=== PATIENT | female | born 1940 | race Caucasian/White ===

== ENCOUNTER 2018-10-21 20:46 | Inpatient (IN) | payer MEDICARE, OTHER ==
[~2018-10-21] VITALS: Ht 154.9 cm; Wt 73.0 kg
[2018-10-21 20:00] VITALS: BP 150/77
--- NOTE | 2018-10-21 21:10 | NUR ---
PT BIB [facility] WITH A C/O ABD PAIN SINCE 3PM TODAY. PT IS C/O BLOATING AND BURNING PAIN. PT IS ON THE MONITOR AND CONTINUOUS PULSE OX. PT'S BP IS ELEVATED.
[2018-10-21] MEDS ORDERED: ONDANSETRON HCL/PF 4 MG/2 ML VIAL ONE ×2 (21:54→23:59)
[2018-10-21] MEDS ORDERED: MORPHINE SULFATE INJ 4 MG/ML DISP.SYRIN ONE (21:54)
[2018-10-21] MEDS ORDERED: MORPHINE SULFATE INJ 2 MG/ML DISP.SYRIN IV ONE (22:00)
[2018-10-21] MEDS ORDERED: ONDANSETRON HCL/PF - ER 4 MG/2 ML VIAL IV ONE (22:00)
[2018-10-21] MEDS ORDERED: IV NS 0.9% 1,000 ML BAG IV ONE (22:30)
[2018-10-21 22:51] LABS: BASOPHILS % (AUTO) 0.3 % (0.0-2.0); EOSINOPHILS % (AUTO) 0.1 % (0.0-6.0); HEMATOCRIT 42 % (33-45); HEMOGLOBIN 14.2 g/dL (11.5-14.8); LYMPHOCYTES # (AUTO) 1.1 /CMM (0.8-4.8); LYMPHOCYTES % (AUTO) 9.6 % (20.0-44.0); MEAN CORPUSCULAR HGB CONC 33 g/dl (31.0-36.0); MEAN CORPUSCULAR VOLUME 92 fL (82-100); MONOCYTES # (AUTO) 0.5 /CMM (0.1-1.30); MONOCYTES % (AUTO) 4.4 % (2.0-12.0); NEUTROPHILS # (AUTO) 9.4 /CMM (1.8-8.9); NEUTROPHILS % (AUTO) 85.6 % (43.0-81.0); PLATELET COUNT (AUTO) 288 /CMM (150-450); RED BLOOD CELL COUNT(AUTO) 4.63 MIL/uL (4.0-5.2)
[2018-10-21] MEDS ORDERED: PANTOPRAZOLE 40 MG VIAL ONE (22:54)
[2018-10-21 22:58] LABS: CALCIUM, SERUM 9.4 mg/dL (8.5-10.1); CARBON DIOXIDE 26 mmol/L (21-32); CHLORIDE 99 mmol/L (98-107); CREATININE 1.1 mg/dL (0.6-1.3); GLUCOSE 133 mg/dL (74-106); POTASSIUM 4.4 mmol/L (3.5-5.1); SODIUM SERUM 135 mmol/L (136-145); UREA NITROGEN, BLOOD 16 mg/dL (7-18)
[2018-10-21] MEDS ORDERED: PANTOPRAZOLE 40 MG VIAL IV ONE (23:00)
--- NOTE | 2018-10-21 23:02 | NUR ---
PT LEFT FOR CT VIA GURNEY.
[2018-10-21 23:04] LABS: ALANINE AMINOTRANSFERASE 20 U/L (12-78); ALBUMIN 3.7 g/dL (3.4-5.0); ALKALINE PHOSPHATASE 54 U/L (46-116); ASPARTATE AMINOTRANSFERASE 20 U/L (15-37); BILIRUBIN,DIRECT 0.1 mg/dL (0.0-0.2); BILIRUBIN,TOTAL 0.9 mg/dL (0.2-1.0); LIPASE 84 U/L (73-393); TOTAL PROTEIN, SERUM 8.1 g/dL (6.4-8.2)
--- NOTE | 2018-10-21 23:13 | NUR ---
pt returned from CT
--- NOTE | 2018-10-21 23:16 | NUR ---
US TECH AT THE BEDSIDE.
[2018-10-22] MEDS ORDERED: ONDANSETRON HCL/PF - ER 4 MG/2 ML VIAL IV ONE
[2018-10-22] MEDS ORDERED: ONDANSETRON HCL/PF 4 MG/2 ML VIAL ONE (00:04)
[2018-10-22] MEDS ORDERED: PIPERACILLIN /TAZOBACTAM 3.375 G in IV D5W 50 ML IV ONE (00:30)
[2018-10-22] MEDS ORDERED: PIPERACILLIN /TAZOBACTAM 3.375 G VIAL IV ONE (00:36)
[2018-10-22] MEDS ORDERED: GUAI120013 PO (00:43)
[2018-10-22] MEDS ORDERED: APIX5TAB4 PO (00:43)
[2018-10-22] MEDS ORDERED: HYDR-4075 PO (00:43)
[2018-10-22] MEDS ORDERED: LACT1CAP97 PO (00:43)
[2018-10-22] MEDS ORDERED: GABA300C PO (00:43)
[2018-10-22] MEDS ORDERED: OMEP20TA20 PO (00:43)
[2018-10-22] MEDS ORDERED: LOSA1TAB3 PO (00:43)
[2018-10-22] MEDS ORDERED: PITA4TAB PO (00:43)
[2018-10-22] MEDS ORDERED: ACETAMINOPHEN 325 MG TABLET PO PRN (01:30)
[2018-10-22] MEDS ORDERED: Z GUARD REMEDY 2 OZ OINT TP PRN (01:30)
[2018-10-22] MEDS ORDERED: MAGNESIUM HYDROXIDE 30 ML UDC PO PRN (01:30)
[2018-10-22] MEDS ORDERED: MAG HYDROX/AL HYDROX/SIMETH 30 ML UDC PO PRN (01:30)
[2018-10-22] MEDS ORDERED: ONDANSETRON HCL/PF 4 MG/2 ML VIAL IVP PRN (01:30)
[2018-10-22] MEDS ORDERED: MORPHINE SULFATE INJ 2 MG/ML DISP.SYRIN IV PRN (01:30)
[2018-10-22] MEDS ORDERED: MORPHINE SULFATE INJ 2 MG/ML DISP.SYRIN IV ONE (01:30)
[2018-10-22] MEDS ORDERED: ZOLPIDEM TARTRATE 5 MG TABLET PO PRN (01:30)
[2018-10-22 02:00] VITALS: BP 152/77
[2018-10-22 02:00] LABS: APPEARANCE,URINE CLOUDY (CLEAR); BILIRUBIN,URINE NEGATIVE (NEGATIVE); BLOOD, URINE NEGATIVE Ery/uL (NEGATIVE); COLOR,URINE YELLOW (YELLOW); KETONES,URINE TRACE (NEGATIVE); LEUKOCYTE ESTERASE ,URINE SMALL (NEGATIVE); NITRITE, URINE POSITIVE (NEGATIVE); PROTEIN,URINE NEGATIVE (NEGATIVE); UGLUCOSE NEGATIVE (NEGATIVE); UROBILINOGEN,URINE 0.2 EU/dL (0.2)
--- NOTE | 2018-10-22 02:00 | NUR ---
MS RN NOTE: RECEIVED PATIENT FROM ER, NO ACUTE DISTRESS NOTED. BREATHING EVEN AND UNLABORED, NO SOB NOTED. IV TO LEFT WRIST IN PLACE. PATIENT CONTINUES TO HAVE ABDOMINAL PAIN. ORIENTED TO ROOM AND USE OF CALL LIGHT. BED LOCKED AND IN LOWEST POSITION, CALL LIGHT IN REACH, WILL CONTINUE TO MONITOR.
[2018-10-22 02:11] LABS: BACTERIA,URINE Many /HPF (None Seen); SQUAMOUS EPITHELIAL CELL,UR Few /HPF (None Seen); WBC,URINE TOO NUMEROUS TO COUN /HPF (0-3)
[2018-10-22] MEDS: MORPHINE SULFATE INJ 4 MG/ML DISP.SYRIN IV PRN ×3 (02:42→17:31)
--- NOTE | 2018-10-22 02:45 | NUR ---
MS RN NOTE: PATIENT COMPLAINS OF ABDOMINAL PAIN 08/06, MORPHINE 2MG IV GIVEN PER MD ORDER. WILL CONTINUE TO MONITOR.
--- NOTE | 2018-10-22 06:05 | NUR ---
MS RN NOTE: PATIENT RESTING IN BED, NO ACUTE DISTRESS NOTED. BREATHING EVEN AND UNLABORED, NO SOB NOTED. IV TO LEFT WRIST IN PLACE. BED LOCKED AND IN LOWEST POSITION, CALL LIGHT IN REACH, WILL ENDORSE TO DAY NURSE TO CONTINUE WITH PLAN OF CARE.
[2018-10-22] MEDS: PANTOPRAZOLE 40 MG TABLET.DR PO SCH (07:23)
[2018-10-22] MEDS: HYDROCODONE/APAP 5/325MG 1 EACH TABLET PO PRN ×3 (07:25→15:03)
--- NOTE | 2018-10-22 07:30 | NUR ---
MSRN. PT RECEIVED AWAKE AND RESTING IN BED, A&0X3, TOLERATING ROOM AIR AND REPORTING 6/10 PAIN. PT PROVIDED PRN AND PAIN MANAGEMENT DISCUSSED AT LENGTH. PT REPORTING MINOR DISCOMFORT AT L WRIST IVC, IVC SALINE FLUSH PATENT AND NAD. PT AMB STEADY TO BATHROOM. PT BED IN LOWEST LOCKED POSITION WITH HANDRIALX2 AND CALL PENA WITHIN REACH. PT PROVIDED SOCKS FOR COMFORT AND SAFETY. PT BRIEFED ON POC AND IS WITHOUT CONCERN OR COMPLAINT AT THIS TIME. WILL CONTINUE POC.
[2018-10-22 08:00] VITALS: BP 159/74
[2018-10-22] MEDS: LACTOBACILLUS RHAMNOSUS GG 1 EACH CAP.SPRINK PO SCH (08:56)
[2018-10-22] MEDS: ATORVASTATIN 10 MG TABLET PO SCH (08:56)
[2018-10-22] MEDS: LOSARTAN/HCTZ 50-12.5MG/ 1 EA TABLET PO SCH (08:57)
[2018-10-22] MEDS: GUAIFENESIN LA 600 MG TABLET.SA PO SCH (08:57)
[2018-10-22] MEDS: hydrALAZINE HCL 10 MG TABLET PO SCH ×3 (08:57→17:31)
[2018-10-22] MEDS ORDERED: GABAPENTIN 300 MG CAPSULE PO SCH (09:00)
[2018-10-22] MEDS: IV D5/ 0.9% NACL 1,000 ML IV PRN (09:58)
[2018-10-22] MEDS: CEPHALEXIN MONOHYDRATE 500 MG CAPSULE PO SCH ×2 (11:38→17:31)
--- NOTE | 2018-10-22 14:27 | NUR ---
MSRN TRANSFER NOTES. PT TRANSFERRED TO [facility] ROOM 314-1. CARE ENDORSED AT BEDSIDE. PT A&0X3, TOLERATING ROOM AIR AND REPORTING ADEQUATE PAIN CONTROL AT THIS TIME. PT WITH IVC INTACT AND OPERATIONAL WITH IVF PER RX. PT WITH ALL BELONGINGS. CHART DELIVERED. PT WITH PRESENT.
--- NOTE | 2018-10-22 19:30 | NUR ---
MS/RN RECEIVE PATIENT AWAKE, ALERT, ORIENTED, COMFORTABLE, NO C/O PAIN AT THIS TIME, NO DISTRESS NOTED, PATIENT IS AWARE ABOUT THE MRCP PROCEDURE TOMORROW, TEACHINGS DONE ABOUT THE PROCEDURE, PATIENT VERBALIZED UNDERSTANDING AND AGREEMENT. WILL MONITOR.
[2018-10-22 20:00] VITALS: BP 149/66
[2018-10-22] MEDS: GABAPENTIN 300 MG CAPSULE PO SCH (21:59)
--- NOTE | 2018-10-23 00:27 | NUR ---
MS/RN PATIENT IS SLEEPING AT THIS TIME, AROUSABLE, APPEAR COMFORTABLE, NO SIGNS OF DISTRESS NOTED, CALL LIGHT IN REACH. WILL CONTINUE TO MONITOR.
[2018-10-23] MEDS: IV D5/ 0.9% NACL 1,000 ML IV PRN (04:20)
[2018-10-23 06:51] LABS: BASOPHILS % (AUTO) 0.2 % (0.0-2.0); EOSINOPHILS % (AUTO) 0.1 % (0.0-6.0); HEMATOCRIT 37 % (33-45); HEMOGLOBIN 12.4 g/dL (11.5-14.8); LYMPHOCYTES # (AUTO) 1.4 /CMM (0.8-4.8); LYMPHOCYTES % (AUTO) 7.7 % (20.0-44.0); MEAN CORPUSCULAR HGB CONC 33 g/dl (31.0-36.0); MEAN CORPUSCULAR VOLUME 92 fL (82-100); MONOCYTES # (AUTO) 1.6 /CMM (0.1-1.30); MONOCYTES % (AUTO) 8.7 % (2.0-12.0); NEUTROPHILS # (AUTO) 15.2 /CMM (1.8-8.9); NEUTROPHILS % (AUTO) 83.3 % (43.0-81.0); PLATELET COUNT (AUTO) 232 /CMM (150-450); RED BLOOD CELL COUNT(AUTO) 4.01 MIL/uL (4.0-5.2); WHITE BLOOD COUNT (AUTO) 18.3 K/uL (4.3-11.0)
[2018-10-23 07:11] LABS: CHOLESTEROL 158 mg/dL (<200); HDL CHOLESTEROL 63 mg/dL (40-60); LDL 89 mg/dL (0-99); TRIGLYCERIDES 77 mg/dL (30-150)
[2018-10-23 07:13] LABS: CALCIUM, SERUM 7.8 mg/dL (8.5-10.1); CARBON DIOXIDE 24 mmol/L (21-32); CHLORIDE 99 mmol/L (98-107); CREATININE 0.8 mg/dL (0.6-1.3); GLUCOSE 144 mg/dL (74-106); MAGNESIUM 1.7 mg/dL (1.8-2.4); PHOSPHORUS 2.8 mg/dL (2.5-4.9); POTASSIUM 3.2 mmol/L (3.5-5.1); SODIUM SERUM 134 mmol/L (136-145); UREA NITROGEN, BLOOD 10 mg/dL (7-18)
--- NOTE | 2018-10-23 07:13 | NUR ---
TEXTED FOR MRCP APPROVAL
--- NOTE | 2018-10-23 07:16 | NUR ---
MS/RN AWAKE, COMFORTABLE, NO DISTRESS NOTED, NPO POST MIDNIGHT, ALL NEEDS ATTENDED AT THIS TIME.WILL CONTINUE TO MONITOR.
[2018-10-23] MEDS: PANTOPRAZOLE 40 MG TABLET.DR PO SCH (07:30)
[2018-10-23 08:00] VITALS: BP 115/57
--- NOTE | 2018-10-23 08:00 | NUR ---
MS RN NOTES RECEIVED PATIENT AWAKE IN BED WITH NO DISTRESS NOTED. PATIENT A/O X4. MAINTAINED ON NPO STATUS. SPOKE WITH OR NURSE AND VERIFIED PATIENT IS SCHEDULED FOR ERCP AT 0930. ALL CONSENTS SIGNED. AWAITING FOR P/U TO OR. BED IN LOW LOCK POSITION. CALL LIGHT WITHIN REACH. WILL CONTINUE TO MONITORED.
[2018-10-23] MEDS: hydrALAZINE HCL 10 MG TABLET PO SCH ×3 (09:00→17:00)
[2018-10-23] MEDS ORDERED: POTASSIUM CHLORIDE 20 MEQ TAB.PRT.SR PO SCH (10:30)
[2018-10-23] MEDS: ATORVASTATIN 10 MG TABLET PO SCH (10:44)
[2018-10-23] MEDS: CEPHALEXIN MONOHYDRATE 500 MG CAPSULE PO SCH (10:44)
[2018-10-23] MEDS: GUAIFENESIN LA 600 MG TABLET.SA PO SCH (10:44)
[2018-10-23] MEDS: LACTOBACILLUS RHAMNOSUS GG 1 EACH CAP.SPRINK PO SCH (10:44)
[2018-10-23] MEDS: HYDROCODONE/APAP 5/325MG 1 EACH TABLET PO PRN (10:46)
[2018-10-23] MEDS: Magnesium 1GM/D5W 100ML PREMIX 100 ML IV SCH ×2 (10:50→12:33)
[2018-10-23] MEDS: LOSARTAN/HCTZ 50-12.5MG/ 1 EA TABLET PO SCH (10:50)
[2018-10-23] MEDS ORDERED: PIPERACILLIN /TAZOBACTAM 3.375 G in IV D5W 50 ML IV ONE (14:00)
[2018-10-23 16:00] VITALS: BP 113/63
--- NOTE | 2018-10-23 18:17 | NUR ---
MS RN NOTES PATIENT AWAKE IN BED AND REMAINS IN GOOD STABLE CONDITION. NO C/O PAIN OR DISCOMFORT. ALL DUE MEDS GIVEN ORDERED WITH NO ASE NOTED. ALL NEEDS MET. PT WAITING TO BE TRANSFERRED TO [facility]. PERIPHERAL IV INTACT AND PATENT. WILL ENDORSE TO ONCOMING SHIFT.
--- NOTE | 2018-10-23 19:20 | NUR ---
RN OPENING NOTES PT AWAKE AND RESTING IN BED. PT ALERT AND ORIENTED X4. NO COMPLAINTS OF PAIN, SOB OR DISTRESS AT THIS TIME. PT HAS A RIGHT WRIST #22 RUNNING D5NS@50ML/HR, PT TOLERATING WELL. PER DAY SHIFT NURSE PT WILL BE NPO@ MIDNIGHT POSSIBLE ERCP TOMORROW. IF NOT DONE AT THIS FACILITY PT FAMILY REQUESTED FOR PATIENT TO BE TRANSFERRED TO [facility]. [facility] ACCEPTED PATIENT BUT DO NOT HAVE A BED AVAILABLE AT THIS TIME. SAFETY PRECAUTIONS IN PLACE, BED IN LOWEST LOCKED POSITION, X2 SIDE RAILS UP AND CALL LIGHT WITHIN REACH. WILL CONTINUE TO MONITOR.
[2018-10-23 20:00] VITALS: BP 121/70
[2018-10-23] MEDS: GABAPENTIN 300 MG CAPSULE PO SCH (21:18)
[2018-10-23] MEDS ORDERED: PIPERACILLIN /TAZOBACTAM 3.375 G VIAL IV ONE (21:56)
[2018-10-23] MEDS: PIPERACILLIN /TAZOBACTAM 3.375 G in IV D5W 100 ML IV SCH (22:04)
--- NOTE | 2018-10-24 00:15 | NUR ---
RN NOTES SANTOS, ADMITTING FROM [facility] CALLED REGARDING POSSIBLE TRANSFER. PER SANTOS PT UNABLE TO TRANSFER. NO BEDS AVAILABLE AT THIS TIME, BUT OFFERED FOR THE PATIENT TO RESCHEDULE OR WAIT FOR OPEN BED. PHONE NUMBER:
[2018-10-24] MEDS ORDERED: PIPERACILLIN /TAZOBACTAM 3.375 G VIAL IV ONE (05:59)
[2018-10-24] MEDS: PIPERACILLIN /TAZOBACTAM 3.375 G in IV D5W 100 ML IV SCH ×3 (06:18→21:56)
--- NOTE | 2018-10-24 06:30 | NUR ---
RN NOTES PT COMPLAINING OF BEING COLD AND SHIVERING, TEMP WNL. PT GIVEN TYLENOL.
--- NOTE | 2018-10-24 07:00 | NUR ---
RN CLOSING NOTES PT AWAKE AND RESTING IN BED. PT ALERT AND ORIENTED X4. NO COMPLAINTS OF PAIN OR SOB. PT HAS A RIGHT WRIST #22 RUNNING D5NS@50ML/HR, PT TOLERATING WELL. PT NPO@ MIDNIGHT POSSIBLE ERCP TODAY. PER ALEXIS NO BEDS AVAILABLE. INFORMED PATIENT. SAFETY PRECAUTIONS IN PLACE, BED IN LOWEST LOCKED POSITION, X2 SIDE RAILS UP AND CALL LIGHT WITHIN REACH. WILL ENDORSE TO DAY SHIFT NURSE FOR CONTINUITY OF CARE.
[2018-10-24] MEDS: PANTOPRAZOLE 40 MG TABLET.DR PO SCH (07:30)
[2018-10-24 07:37] LABS: BASOPHILS % (AUTO) 0.3 % (0.0-2.0); EOSINOPHILS % (AUTO) 0.6 % (0.0-6.0); HEMATOCRIT 40 % (33-45); HEMOGLOBIN 13.2 g/dL (11.5-14.8); LYMPHOCYTES # (AUTO) 1.4 /CMM (0.8-4.8); LYMPHOCYTES % (AUTO) 11.1 % (20.0-44.0); MEAN CORPUSCULAR HGB CONC 33 g/dl (31.0-36.0); MEAN CORPUSCULAR VOLUME 94 fL (82-100); MONOCYTES # (AUTO) 0.4 /CMM (0.1-1.30); MONOCYTES % (AUTO) 3.4 % (2.0-12.0); NEUTROPHILS # (AUTO) 10.3 /CMM (1.8-8.9); NEUTROPHILS % (AUTO) 84.6 % (43.0-81.0); PLATELET COUNT (AUTO) 226 /CMM (150-450); RED BLOOD CELL COUNT(AUTO) 4.25 MIL/uL (4.0-5.2); WHITE BLOOD COUNT (AUTO) 12.2 K/uL (4.3-11.0)
[2018-10-24 07:52] LABS: ALANINE AMINOTRANSFERASE 63 U/L (12-78); ALBUMIN 2.9 g/dL (3.4-5.0); ALKALINE PHOSPHATASE 114 U/L (46-116); ASPARTATE AMINOTRANSFERASE 58 U/L (15-37); BILIRUBIN,TOTAL 2.5 mg/dL (0.2-1.0); CALCIUM, SERUM 8.3 mg/dL (8.5-10.1); CARBON DIOXIDE 25 mmol/L (21-32); CHLORIDE 97 mmol/L (98-107); GLUCOSE 144 mg/dL (74-106); MAGNESIUM 1.9 mg/dL (1.8-2.4); PHOSPHORUS 1.9 mg/dL (2.5-4.9); POTASSIUM 3.9 mmol/L (3.5-5.1); SODIUM SERUM 132 mmol/L (136-145); TOTAL PROTEIN, SERUM 7.3 g/dL (6.4-8.2); UREA NITROGEN, BLOOD 11 mg/dL (7-18)
--- NOTE | 2018-10-24 07:55 | NUR ---
MS RN OPENING NOTE PT AWAKE IN BED. PT ALERT AND ORIENTED X4. NO COMPLAINTS OF PAIN OR SOB. PT HAS A RIGHT WRIST #22 RUNNING D5NS@50ML/HR, PT TOLERATING WELL. PT CONTINUES TO BE NPO. WILL F/U WITH CASE MGMT REGARDING PROCEDURE. SAFETY PRECAUTIONS IN PLACE, BED IN LOWEST LOCKED POSITION, X2 SIDE RAILS UP AND CALL LIGHT WITHIN REACH. WILL CONT. TO MONITOR PT.
[2018-10-24 08:00] VITALS: BP 100/52
--- NOTE | 2018-10-24 08:06 | NUR ---
RN MS NOTES PT AWAKE, SITTING IN HER CHAIR, NOT IN PAIN OR DISTRESS, PT STATES THAT SHE DOES NOT WANT ERCP TO BE DONE HERE AND SHE WILL TRANSFER TO [facility], INFORMED PT THAT WE ARE WAITING FOR A BED, VERBALIZED UNDERSTANDING, DR. ALAN AND O.R. STAFF INFORMED, DR. BARRAZA INFORMED.
[2018-10-24] MEDS: hydrALAZINE HCL 10 MG TABLET PO SCH ×3 (09:00→17:00)
[2018-10-24] MEDS: GUAIFENESIN LA 600 MG TABLET.SA PO SCH (09:00)
[2018-10-24] MEDS: LACTOBACILLUS RHAMNOSUS GG 1 EACH CAP.SPRINK PO SCH (09:00)
[2018-10-24] MEDS: LOSARTAN/HCTZ 50-12.5MG/ 1 EA TABLET PO SCH (09:00)
[2018-10-24] MEDS: ATORVASTATIN 10 MG TABLET PO SCH (09:00)
[2018-10-24] MEDS ORDERED: K PHOS NEUTRAL 250 MG TABLET PO ONE (13:00)
[2018-10-24 16:00] VITALS: BP 100/57
--- NOTE | 2018-10-24 18:31 | NUR ---
MS RN CLOSING NOTE PT. REMAINS IN STABLE CONDITION WITH NO SIGNS OF SOB/DISTRESS. VS STABLE WITH NO PAIN NOTED. PT. AMBULATING TO RESTROOM. IV R WRIST #22 PATENT WITH NO SIGNS OF INFILTRATION. BED REMAINS IN LOWEST POSITION, UPPER BEDRAILS UP, AND CALL LIGHT WITHIN REACH. PT. STILL AWAITING FOR A BED AT [facility] TO HAVE PROCEDURE DONE. PT. VERBALIZES UNDERSTANDING OF CURRENT PLAN OF CARE. WILL ENDORSE TO NEXT SHIFT.
--- NOTE | 2018-10-24 19:30 | NUR ---
RN OPENING NOTES: RECEIVED PATIENT ON BED AWAKE AND ALERT NOT IN APPARENT DISTRESS ON ROOM AIR; IVF ONGOING ORDERED. IV SITE RE DRESSED. NO COMPLAINTS OF PAIN AT THIS TIME BUT WITH REPORT OF "DIARRHEA" PATIENT ONLY WENT ONCE BUT PER HER IT "STARTED OUT SOLID THEN ITS ALL LIQUIDS AND I COULD NOT CONTROL IT." TO MONITOR FOR FURTHER EPISODES AT THIS TIME. SAFETY MEASURES ENSURED. CALL LIGHT WITHIN REACH. CONTINUOUSLY MONITORED.
[2018-10-24 20:00] VITALS: BP 124/75
[2018-10-24] MEDS: GABAPENTIN 300 MG CAPSULE PO SCH (21:56)
[2018-10-25] MEDS: HYDROCODONE/APAP 5/325MG 1 EACH TABLET PO PRN (00:35)
--- NOTE | 2018-10-25 00:35 | NUR ---
RN NOTES: PATIENT REPORT PAIN AT 6/10 OVER ABDOMEN. PER PATIENT NORCO WAS EFFECTIVE ON HER EARLIER. NORCO ORDERED. TO MONITOR RESPONSE TO PAIN MGT.
[2018-10-25] MEDS: IV D5/ 0.9% NACL 1,000 ML IV PRN (01:58)
[2018-10-25] MEDS: PIPERACILLIN /TAZOBACTAM 3.375 G in IV D5W 100 ML IV SCH (05:28)
--- NOTE | 2018-10-25 06:50 | NUR ---
RN CLOSING NOTES: PATIENT REMAINED NOT IN APPARENT DISTRESS. NO COMPLAINTS OF PAIN. PATIENT VERBALIZED SHE WANTED TO HAVE RPOCEDURE DONE AND IS HOPING TO BE TRANSFERRED TO [facility] SOON. SAFETY MEASURES ENSURED. AM LABS DRAWN. PENDING RESULT. DUE MEDS GIVEN. IV REMAINED INTACT BUT POSITIONAL. PATIENT REFUSING RE INSERTION DESPITE MULTIPLE OFFERS. TO ENDORSE TO AM SHIFT RN.
[2018-10-25 07:09] LABS: BASOPHILS % (AUTO) 0.4 % (0.0-2.0); HEMATOCRIT 32 % (33-45); HEMOGLOBIN 10.8 g/dL (11.5-14.8); LYMPHOCYTES # (AUTO) 1.3 /CMM (0.8-4.8); LYMPHOCYTES % (AUTO) 13.2 % (20.0-44.0); MEAN CORPUSCULAR HGB CONC 34 g/dl (31.0-36.0); MEAN CORPUSCULAR VOLUME 92 fL (82-100); MONOCYTES # (AUTO) 1.3 /CMM (0.1-1.30); MONOCYTES % (AUTO) 13.3 % (2.0-12.0); NEUTROPHILS # (AUTO) 7.1 /CMM (1.8-8.9); NEUTROPHILS % (AUTO) 72.1 % (43.0-81.0); PLATELET COUNT (AUTO) 219 /CMM (150-450); WHITE BLOOD COUNT (AUTO) 9.9 K/uL (4.3-11.0)
[2018-10-25 07:33] LABS: ALANINE AMINOTRANSFERASE 46 U/L (12-78); ALBUMIN 2.3 g/dL (3.4-5.0); ALKALINE PHOSPHATASE 96 U/L (46-116); ASPARTATE AMINOTRANSFERASE 31 U/L (15-37); BILIRUBIN,TOTAL 1.7 mg/dL (0.2-1.0); CARBON DIOXIDE 27 mmol/L (21-32); CHLORIDE 102 mmol/L (98-107); CREATININE 0.8 mg/dL (0.6-1.3); GLUCOSE 115 mg/dL (74-106); LIPASE 58 U/L (73-393); PHOSPHORUS 2.1 mg/dL (2.5-4.9); SODIUM SERUM 138 mmol/L (136-145); TOTAL PROTEIN, SERUM 6.4 g/dL (6.4-8.2); UREA NITROGEN, BLOOD 9 mg/dL (7-18)
--- NOTE | 2018-10-25 07:45 | NUR ---
MS RN NOTE RECEIVED PT. IN STABLE CONDITION, PT. SITTING ON CHAIR WITH NO SIGNS OF SOB/DISTRESS. ALERT ORIENTED X4. NO INDICATION OF PAIN. WILL FOLLOW UP WITH MANAGER PLAN IN REGARDS TO PLACEMENT AT [facility] FOR PROCEDURE. SAFETY PRECAUTIONS IN PLACE. WILL CONTINUE TO MONITOR.
[2018-10-25 08:00] VITALS: BP 112/62
[2018-10-25] MEDS: PANTOPRAZOLE 40 MG TABLET.DR PO SCH (08:14)
[2018-10-25] MEDS: ATORVASTATIN 10 MG TABLET PO SCH (08:30)
[2018-10-25] MEDS: LACTOBACILLUS RHAMNOSUS GG 1 EACH CAP.SPRINK PO SCH (08:31)
[2018-10-25] MEDS: GUAIFENESIN LA 600 MG TABLET.SA PO SCH (08:32)
[2018-10-25] MEDS: LOSARTAN/HCTZ 50-12.5MG/ 1 EA TABLET PO SCH (09:00)
[2018-10-25] MEDS: hydrALAZINE HCL 10 MG TABLET PO SCH ×2 (09:00→12:55)
--- NOTE | 2018-10-25 09:04 | NUR ---
MS RN NOTE HYDRAZALINE AND LOSARTAN HELD. BP TRENDING LOW, AND NOW NORMAL. VALUE: 126/71
[2018-10-25] MEDS: POTASSIUM CHLORIDE 20 MEQ POWDER PACKET PO SCH ×3 (11:47→13:35)
--- NOTE | 2018-10-25 12:32 | NUR ---
RN MS NOTES RN TRANSPORT SCOOTER SPOKE WITH PT AND AT BEDSIDE, PER PT, SHE IS CONSIDERING HAVING THE ERCP DONE HERE BUT WOULD LIKE TO SPEAK WITH DR. BARRAZA FIRST, DR BARRAZA INFORMED.
[2018-10-25 12:55] VITALS: BP 137/68
[2018-10-25] MEDS ORDERED: K PHOS NEUTRAL 250 MG TABLET PO ONE (13:00)
[2018-10-25] MEDS ORDERED: SULF1TAB48 PO (15:11)
--- NOTE | 2018-10-25 15:22 | NUR ---
MS RN NOTE PT SEEN AND EXAMINED BY DR. DAVILA. PT AND MD DISCUSSED THAT THE ERCP CANNOT BE DONE HERE, AND WAS SUGGESTED TO GO TO [facility] TO CONTINUE CARE. PT AGREED WITH MD PLAN OF CARE. SHE DISCHARGED FROM THE HOSPITAL IN STABLE CONDITION WITH NO SIGNS OF SOB OR DISTRESS. NO PAIN NOTED. PT. TOOK AND SIGNED FOR ALL BELONGINGS. DISCHARGE TEACHING DONE AND VERBALIZED UNDERSTANDING. SHE WAS ACCOMPANIED BY HER AND LEFT VIA PRIVATE CAR.
[2018-10-25] MEDS ORDERED: CEFTRIAXONE 1 G in IV D5W 50 ML IV SCH (16:00)
== END 2018-10-25 15:20 | disposition home or self-care (01) | DRG 445 ==
LOC: ER 20:48 → MEDSG2 10-22 01:21 → MED 10-22 14:59
PROVIDERS: ADMIT Registered Nurse; ATTEND Nurse Practitioner Acute Care
DX: K80.62 Calculus of gallbladder and bile duct with acute cholecystitis without obstruction (principal); N39.0 Urinary tract infection, site not specified; I10 Essential (primary) hypertension; M79.7 Fibromyalgia; K21.9 Gastro-esophageal reflux disease without esophagitis; B96.20 Unspecified Escherichia coli [E. coli] as the cause of diseases classified elsewhere; E66.9 Obesity, unspecified; E78.5 Hyperlipidemia, unspecified; E87.6 Hypokalemia; G62.9 Polyneuropathy, unspecified; I25.10 Atherosclerotic heart disease of native coronary artery without angina pectoris; I48.91 Unspecified atrial fibrillation; Z86.718 Personal history of other venous thrombosis and embolism; Z87.440 Personal history of urinary (tract) infections; Z95.0 Presence of cardiac pacemaker; R73.9 Hyperglycemia, unspecified; Z68.30 Body mass index [BMI] 30.0-30.9, adult; D64.9 Anemia, unspecified; Z79.01 Long term (current) use of anticoagulants
CPT/HCPCS: 36415; 71045-TC; 76705-TC; 80048-TC; 80053-TC; 80061-TC; 80076-TC; 81000-TC; 83690-TC; 83735-TC; 84100-TC; 85025-TC; 87040-TC; 87081-TC; 87086-TC; 87186-TC; A4606; C9113; G0378; J0696; J2270; J2405; J2543; J3475; J7030; J7042; J7060; Z7610

== ENCOUNTER 2023-08-11 15:56 | Emergency (ER) | payer MEDICARE, OTHER ==
[~2023-08-11] VITALS: Ht 152.4 cm; Wt 81.6 kg
[~2023-08-11 15:56] MED LIST: APIX5TAB4 PO; GABA300C PO; GUAI120013 PO; HYDR-4075 PO; LACT1CAP97 PO; LOSA1TAB3 PO; OMEP20TA20 PO; PITA4TAB PO; SULF1TAB48 PO
[2023-08-11 17:20] LABS: BASOPHILS # (AUTO) 0.2 K/uL (0.0-0.2); BASOPHILS % (AUTO) 1.8 % (0.0-2.0); EOSINOPHILS # (AUTO) 0.2 K/uL (0.0-0.7); EOSINOPHILS % (AUTO) 2.6 % (0.0-6.0); HEMATOCRIT 37 % (33-45); HEMOGLOBIN 12.1 g/dL (11.5-14.8); LYMPHOCYTES # (AUTO) 2.6 K/uL (0.8-4.8); LYMPHOCYTES % (AUTO) 31.1 % (20.0-44.0); MEAN CORPUSCULAR HEMOGLOBIN 30 PG (26.0-33.0); MEAN CORPUSCULAR HGB CONC 32 g/dl (31.0-36.0); MEAN CORPUSCULAR VOLUME 93 fL (82-100); MONOCYTES # (AUTO) 0.7 K/uL (0.1-1.30); MONOCYTES % (AUTO) 8.3 % (2.0-12.0); NEUTROPHILS # (AUTO) 4.6 K/uL (1.8-8.9); NEUTROPHILS % (AUTO) 56.2 % (43.0-81.0); PLATELET COUNT (AUTO) 299 K/uL (150-450); RED BLOOD CELL COUNT(AUTO) 4.03 MIL/uL (4.0-5.2); RED CELL DISTRIBUTION WIDTH 13.9 % (11.5-15.0); WHITE BLOOD COUNT (AUTO) 8.2 K/uL (4.3-11.0)
[2023-08-11 17:40] LABS: CALCIUM, SERUM 9.3 mg/dL (8.5-10.1); CARBON DIOXIDE 24 mmol/L (21-32); CHLORIDE 104 mmol/L (98-107); CREATININE 1.2 mg/dL (0.6-1.3); GLUCOSE 102 mg/dL (74-106); POTASSIUM 4.3 mmol/L (3.5-5.1); SODIUM SERUM 136 mmol/L (136-145); UREA NITROGEN, BLOOD 26 mg/dL (7-18)
[2023-08-11 17:46] LABS: ALANINE AMINOTRANSFERASE 19 U/L (12-78); ALBUMIN 3.7 g/dL (3.4-5.0); ALKALINE PHOSPHATASE 54 U/L (46-116); ASPARTATE AMINOTRANSFERASE 21 U/L (15-37); BILIRUBIN,DIRECT 0.1 mg/dL (0.0-0.2); BILIRUBIN,TOTAL 0.4 mg/dL (0.2-1.0); TOTAL PROTEIN, SERUM 8.4 g/dL (6.4-8.2)
[2023-08-11 17:50] LABS: INR 1.03 (0.91-1.10); PROTHROMBIN TIME 10.8 SECS (9.2-11.1)
[2023-08-11 18:17] VITALS: BP 143/70; TEMP 98.2; O2SAT 98
== END 2023-08-11 18:18 | disposition home or self-care (01) ==
LOC: ER 16:02
DX: S00.03XA Contusion of scalp, initial encounter (principal); I10 Essential (primary) hypertension; I48.91 Unspecified atrial fibrillation; Z98.890 Other specified postprocedural states; Z79.899 Other long term (current) drug therapy; W18.39XA Other fall on same level, initial encounter; Y93.89 Activity, other specified; Y92.096 Garden or yard of other non-institutional residence as the place of occurrence of the external cause; Y99.8 Other external cause status
CPT/HCPCS: 36415; 70450-TC; 71045-TC; 80048-TC; 80076-TC; 84484-TC; 85025-TC; 85730-TC